=== PATIENT | female | born 1970 | race Caucasian/White ===

== ENCOUNTER 2020-03-04 14:33 | Inpatient (IN) ==
[2020-03-04 15:04] LABS: Bilirubin,Urine Negative (Negative); Blood,Urine Negative (Negative); Clarity,Urine Cloudy (Clear); Color,Urine Yellow (Yellow); Glucose,Urine (UA) Normal (Normal); Ketones,Urine 40 mg/dL (Negative); Leukocyte Esterase,Urine Moderate (Negative); Nitrite,Urine Positive (Negative); Protein,Urine 100 mg/dL (Neg-Trace); Specific Gravity,Urine 1.026 (1.010-1.025); Urobilinogen,Urine Normal (Normal)
[2020-03-04 15:06] LABS: Bacteria,Urine Many per hpf (None-Few); Hyaline Casts,Urine Moderate per lpf (None-Few); Squamous Epithelial Cell,Urine Many per lpf (None-Few); WBC,Urine 30-50 per hpf (0-3)
[2020-03-04 15:07] LABS: Basophils # 0.1 K/mcL (0.0-0.2); Basophils % 0.6 %; Eosinophils # 0.1 K/mcL (0.0-0.6); Eosinophils % 0.6 %; Hematocrit 39.1 % (35.3-44.9); Immature Granulocytes % 0.5 % (0-4); Lymphocytes # 2.3 K/mcL (0.6-4.6); Lymphocytes % 21.1 %; Mean Corpuscular HGB Conc 33.2 g/dL (31.6-35.5); Mean Corpuscular Hemoglobin 28.6 pg (28.0-33.3); Mean Corpuscular Volume 86.1 fL (83.0-100.0); Mean Platelet Volume 9.5 fL (9.4-12.4); Monocytes # 0.7 K/mcL (0.0-1.3); Monocytes % 6.8 %; Neutrophils # 7.6 K/mcL (1.6-8.9); Platelet Count 384 K/mcL (140-400); Red Blood Count 4.54 M/mcL (3.82-4.97); Red Cell Distribution Width 12.1 % (11.5-14.5); Segmented Neutrophils % 70.4 %; White Blood Count 10.8 K/mcL (4.3-11.1)
[2020-03-04 15:11] LABS: Amphetamine Screen,Urine Negative ng/mL (Cutoff=1000); Barbiturate Screen,Urine Negative ng/mL (Cutoff=200); Benzodiazepines Screen,Urine Negative ng/mL (Cutoff=200); Cannabinoid Screen,Urine Negative ng/mL (Cutoff = 50); Cocaine Screen,Urine Negative ng/mL (Cutoff= 300); Opiate Screen,Urine Negative ng/mL (Cutoff=300); Phencyclidine Screen,Urine Negative ng/mL (Cutoff=25)
[2020-03-04 15:19] LABS: Estimated Average Glucose 278 mg/dl
[2020-03-04 15:31] LABS: Acetaminophen < 10 mcg/mL (10-20); BUN/Creatinine Ratio 23 (6-26); Blood Urea Nitrogen 14 mg/dL (6-20); Calcium 9.6 mg/dL (8.6-10.3); Carbon Dioxide 22 mEq/L (23-29); Chloride 104 mEq/L (98-107); Chol/HDL Ratio 5.4 (0-4.9); Cholesterol 205 mg/dL (< 200); Ethanol < 10 mg/dL (Less than 10); Glucose 193 mg/dL (70-105); HDL Cholesterol 38 mg/dL (40-59); LDL Cholesterol,Calculated 138 mg/dL (0-99); Osmolality,Calculated 290 (280-300); Potassium 3.4 mEq/L (3.5-5.1); Salicylate < 2.5 mg/dL (15.0-30.0); Sodium 137 mEq/L (136-145); Triglycerides 143 mg/dL (< 150); Troponin I < 0.03 ng/mL (< 0.04); eGFR For African Americans > 60 (> 60); eGFR For Non-African Americans > 60 (> 60)
[2020-03-04] MEDS ORDERED: Isovue-370 500 ML BOTTLE IVP ONE (15:42)
[2020-03-04] MEDS ORDERED: Potassium Chloride Elixir 20 MEQ/15 ML UDC PO ONE (17:40)
[2020-03-04] MEDS ORDERED: *HR* LORazepam 1 MG TABLET PO PRN (18:12)
[2020-03-04] MEDS ORDERED: Mag Hydrox/Al Hydrox/Simeth 30 ML UDC PO PRN (18:12)
[2020-03-04] MEDS ORDERED: haloperidoL 5 MG TABLET PO PRN (18:12)
[2020-03-04] MEDS ORDERED: Acetaminophen 325 MG TABLET PO PRN (18:12)
[2020-03-04] MEDS ORDERED: MOM Conc 10 ML UD.LIQ PO PRN (18:12)
[2020-03-04] MEDS ORDERED: Haloperidol Lactate 5 MG/ML VIAL IM PRN (18:12)
[2020-03-04] MEDS ORDERED: *HR* LORazepam 2 MG/ML VIAL IM PRN (18:12)
[2020-03-04] MEDS ORDERED: Dextrose Gel 15 GM/37.5 ML TUBE PO PRN ×2 (18:31)
[2020-03-04] MEDS: hydrOXYzine pamoate 25 MG CAPSULE PO PRN (20:40)
[2020-03-04] MEDS: Ibuprofen 800 MG TABLET PO PRN (20:41)
[2020-03-04] MEDS: traZODone 50 MG TABLET PO PRN (20:42)
[2020-03-04] MEDS: Insulin LISPRO 300 UNITS/3 ML VIAL SQ SCH (20:55)
[2020-03-05] MEDS: Ibuprofen 800 MG TABLET PO PRN ×2 (09:10→20:54)
[2020-03-05] MEDS: Nitrofurantoin (BID) 100 MG CAPSULE PO SCH ×2 (09:10→17:07)
[2020-03-05] MEDS: Insulin LISPRO 300 UNITS/3 ML VIAL SQ SCH ×4 (09:11→20:53)
[2020-03-05] MEDS: FLUoxetine 20 MG CAPSULE PO SCH (11:59)
[2020-03-05] MEDS: traZODone 50 MG TABLET PO PRN (20:53)
[2020-03-05] MEDS: hydrOXYzine pamoate 25 MG CAPSULE PO PRN (20:53)
[2020-03-06] MEDS: Nitrofurantoin (BID) 100 MG CAPSULE PO SCH ×2 (08:48→16:46)
[2020-03-06] MEDS: FLUoxetine 20 MG CAPSULE PO SCH (08:48)
[2020-03-06] MEDS: Ibuprofen 800 MG TABLET PO PRN ×2 (08:48→20:34)
[2020-03-06] MEDS: Insulin LISPRO 300 UNITS/3 ML VIAL SQ SCH ×4 (08:48→23:00)
[2020-03-06] MEDS: traZODone 50 MG TABLET PO PRN (20:35)
[2020-03-06] MEDS: hydrOXYzine pamoate 25 MG CAPSULE PO PRN (20:35)
[2020-03-07] MEDS: FLUoxetine 20 MG CAPSULE PO SCH (09:20)
[2020-03-07] MEDS: Nitrofurantoin (BID) 100 MG CAPSULE PO SCH (09:21)
[2020-03-07] MEDS: Ibuprofen 800 MG TABLET PO PRN (09:21)
[2020-03-07] MEDS: Insulin LISPRO 300 UNITS/3 ML VIAL SQ SCH (10:34)
[2020-03-07 12:13] VITALS: BP 114/71
== END 2020-03-07 13:15 | disposition home or self-care (01) | DRG 885 ==
LOC: EMEROOARM 14:33 → 1ANU 18:02
PROVIDERS: ADMIT Psychiatry & Neurology Psychiatry; ATTEND Psychiatry & Neurology Psychiatry